=== PATIENT | male | born 1965 | race Caucasian/White ===

== ENCOUNTER 2019-11-25 13:38 | Emergency (ER) | payer BC, OTHER ==
--- NOTE | 2019-11-25 15:10 | ED ---
Complex/Multi-Sys Presentation - HPI Summary HPI Summary: 54 year old M presenting to [facility] for several complaints. Patient reports smelling acetone on his breath and concerned about ketosis. Also had an episode of anxiety earlier where he experienced SOB earlier today 11/25/2019. Patient reports he has had an increase in sleep apnea, edema in the lower legs, and decreased metabolism over the past couple years and believes he could be becoming diabetic. He is concerned about generalized fatigue, weight gain of 10 lbs. Also reports some trouble concentrating but that he attributes this to his workload. No CP. FHx of HTN, heart disease, and a genetic disease known as heritable spastic paraplegia noted. The patient rates the pain 0/10 in severity. Symptoms aggravated by nothing. Symptoms alleviated by nothing. - History Of Current Complaint Chief Complaint: EDDiabeticProb Time Seen by Provider: 11/25/19 14:54 Hx Obtained From: Patient Onset/Duration: Gradual Onset, Lasting Weeks, Still Present Aggravating Factor(s): nothing Alleviating Factor(s): nothing Associated Signs And Symptoms: Positive: Edema - slightly in increased in lower legs, Other - positive - acetone in breath, sleep apnea. Negative: SOB - since resolved from anxiety - Allergies/Home Medications Allergies/Adverse Reactions: Allergies Allergy/AdvReac Type Severity Reaction Status Date / Time lactose Allergy GI Upset Verified 11/25/19 15:03 shellfish derived Allergy Swelling Verified 11/25/19 15:03 Galic Allergenic Extract AdvReac Severe GI Upset Uncoded 11/25/19 15:03 Green Baeza Pepper Extract AdvReac Severe GI Upset Uncoded 11/25/19 15:03 [place] Green Mussel AdvReac Severe GI Upset Uncoded 11/25/19 15:03 Extract Home Medications: Home Medications NK [No Home Medications Reported] 08/25/18 [History Confirmed 11/25/19] PMH/Surg Hx/FS Hx/Imm Hx Respiratory History: Reports: Hx Sleep Apnea Sensory History: Denies: Hx Legally Blind Infectious Disease History: No Infectious Disease History: Denies: Traveled Outside the [place] in Last 30 Days - Family History Known Family History: Positive: Cardiac Disease, Hypertension, Other - heritable spastic parapalegia - Social History Alcohol Use: Rare Substance Use Type: Reports: None Smoking Status (MU): Never Smoked Tobacco Review of Systems ENT: Other - acetone in breath, sleep apnea Negative: Shortness Of Breath - since resolved from anxiety earlier Positive: Edema - slightly increased in lower legs All Other Systems Reviewed And Are Negative: Yes Physical Exam - Summary Physical Exam Summary: Constitutional: Well-developed, Well-nourished, Alert. (-) Distressed Skin: Warm, Dry HENT: Normocephalic; Atraumatic Eyes: Conjunctiva normal Neck: Musculoskeletal ROM normal neck. (-) JVD, (-) Stridor, (-) Nuchal rigidity Cardio: Rhythm regular, rate normal, Heart sounds normal; Intact distal pulses; Radial pulses are 2+ and symmetric. (-) Murmur Pulmonary/Chest wall: Effort normal. (-) Respiratory distress, (-) Wheezes, (-) Rales Abd: Soft, (-) tenderness, (-) Distension, (-) Guarding, (-) Rebound Musculoskeletal: (-) Edema Lymph: (-) Cervical adenopathy Neuro: Alert, Oriented x3 Psych: Mood and affect Normal Triage Information Reviewed: Yes Vital Signs On Initial Exam: Initial Vitals Temp Pulse Resp BP Pulse Ox 99 F 83 16 148/88 100 11/25/19 13:40 11/25/19 13:40 11/25/19 13:40 11/25/19 13:40 11/25/19 13:40 Vital Signs Reviewed: Yes Procedures - Sedation Patient Received Moderate/Deep Sedation with Procedure: No Diagnostics - Vital Signs Vital Signs Temp Pulse Resp BP Pulse Ox 11/25/19 13:40 99 F 83 16 148/88 100 - Laboratory Result Diagrams: 11/25/19 15:20 11/25/19 15:19 Lab Statement: Any lab studies that have been ordered have been reviewed, and results considered in the medical decision making process. - EKG 1710 Cardiac Rate: NL EKG Rhythm: Sinus Rhythm Summary of EKG Findings: An EKG at 1710 reveals normal sinus rhythm at a rate of 71 sinus rhythm, nml axis, and nml intervals. No STEMI. No acute changes. ED physician has reviewed and interpreted this EKG. Re-Evaluation - Re-Evaluation First Eval Re-Evaluation Time: 17:00 Change: Improved - d/w patient lab results, EKG. He will follow up w PCP or our clinic. Complex Multi-Symp Course/Dx Course Of Treatment: 54 y/o male w no sig PMH resenting with several symptoms. Patient concerned about blood sugar, blood skin normal. Patient also reports generalized fatigue, and weight gain. TSH unremarkable. Patient did report feeling anxious earlier, no chest pain or shortness of breath at this time. No appreciable LE edema but could have some mild dependent edema. EKG unremarkable. Discussed with patient normal lab work and EKG. He can follow- up with primary care is warranted - Diagnoses Provider Diagnoses: Fatigue Discharge ED - Sign-Out/Discharge Documenting (check all that apply): Patient Departure - discharge - Discharge Plan Condition: Stable Disposition: HOME Patient Education Materials: Fatigue (ED) Referrals: Katie Dumas MD [Primary Care Provider] - Additional Instructions: You were seen in the emergency department for concern over your blood sugar. Your labs including your blood sugar, thyroid studies and electrolytes were normal. Please follow up with your primary care doctor in next 2-3 days and return to emergency department for worsening or concerning symptoms. It was a pleasure taking care of you today. - Billing Disposition and Condition Condition: STABLE Disposition: Home - Attestation Statements Document Initiated by Indiae: Yes Documenting Scribe: Tam Aragon Provider For Whom Sherman is Documenting (Include Credential): Dr.Caelyn Yola Dumont MD Scribe Attestation: I, Tam Aragon, scribed for Dr.Caelyn Yola Dumont MD on 11/25/19 at 1802. Scribe Documentation Reviewed: Yes Provider Attestation: The documentation as recorded by the Tam han accurately reflects the service I personally performed and the decisions made by me, Dr.Caelyn Yola Dumont MD Status of Scribe Document: Viewed
[2019-11-25 15:31] LABS: ABS Lymphocytes 0.9 10^3/ul (1.0-4.8); ABS Monocytes 0.4 10^3/ul (0-0.8); Eosinophil % 0.1 %; Hematocrit 41 % (42-52); Hemoglobin 14.2 g/dL (14.0-18.0); Lymphocyte % 10.5 %; Mean Corpuscular HGB Conc 35 g/dL (31-36); Mean Corpuscular Hemoglobin 32 pg (27-31); Mean Corpuscular Volume 92 fL (80-94); Mean Platelet Volume 9.3 fL (7.4-10.4); Platelet Count 187 10^3/uL (150-450); Red Blood Count 4.44 10^6 /uL (4.18-5.48); Red Cell Distribution Width 13 % (10-15); White Blood Count 8.2 10^3/uL (3.5-10.8)
[2019-11-25 15:45] LABS: Albumin 4.3 g/dL (3.2-5.2); BUN/Creatinine Ratio 15.5 (8-20); Calcium 9.5 mg/dL (8.6-10.3); EGFR African American 90.7 (>60); Globulin 2.2 g/dL (2-4); Potassium 4.2 mmol/L (3.5-5.0); Total Bilirubin 0.8 mg/dL (0.2-1.0); Total Protein 6.5 g/dL (6.4-8.9)
[2019-11-25 16:56] LABS: TSH (Thyroid Stimulating Horm) 1.38 mcIU/mL (0.34-5.60)
[2019-11-25 17:23] VITALS: BP 133/75
== END 2019-11-25 17:34 | disposition home or self-care (01) ==
LOC: ED 13:38
DX: R53.83 Other fatigue (principal)
CPT/HCPCS: 36415; 80053; 84443; 85025; 93005; 99283